=== PATIENT | female | born 1960 | race African-American/Black ===

== ENCOUNTER 2021-03-17 09:46 | Emergency (ER) | payer SELFPAY ==
[~2021-03-17] VITALS: Ht 175.3 cm; Wt 102.2 kg
[2021-03-17] MEDS ORDERED: diphenhydrAMINE 50 MG/ML VIAL IVP ONE ×2 (10:15→14:30)
[2021-03-17] MEDS ORDERED: EPINEPHrine 1 MG/ML VIAL IM ONE ×2 (10:15→10:30)
[2021-03-17] MEDS ORDERED: methylPREDNISolone SOD SUCC PF 125 MG/2 ML VIAL. IV ONE (10:15)
[2021-03-17] MEDS ORDERED: FAMOTIDINE 20 MG/2 ML VIAL IVP ONE ×2 (10:15→10:30)
[2021-03-17] MEDS ORDERED: diphenhydrAMINE 50 MG/ML VIAL ONE (10:17)
[2021-03-17] MEDS ORDERED: methylPREDNISolone SOD SUCC PF 125 MG/2 ML VIAL. ONE (10:17)
[2021-03-17] MEDS ORDERED: EPINEPHrine 1 MG/ML VIAL ONE (10:18)
[2021-03-17] MEDS ORDERED: FAMOTIDINE 20 MG/2 ML VIAL ONE (10:18)
--- NOTE | 2021-03-17 10:32 | PHYS DOC ---
General Adult EDM: Chief Complaint: ALLERGIC REACTION HPI: HPI: Patient is a 60 year old female who presents with allergic reaction. Patient states that she woke up this morning and her tongue was swollen she was having trouble speaking. Patient reports taking 3, hydrochlorothiazide, of her daughters last night due to her blood pressure being elevated. No other known allergies. Patient has a history of hypertension. Denies taking any medications. Review of Systems: Review of Systems: ROS At least 10 ROS systems have been reviewed and are negative except as documented in the HPI. General: Negative except as outlined in HPI above. Skin: Negative except as outlined in HPI above. HEENT: Negative except as outlined in HPI above. Neck: Negative except as outlined in HPI above. Respiratory: Negative except as outlined in HPI above.. Cardiovascular: Negative except as outlined in HPI above. Abdomen: Negative except as outlined in HPI above. : Negative except as outlined in HPI above. Back/MSK: Negative except as outlined in HPI above. Neuro: Negative except as outlined in HPI above. Psych: Negative except as outlined in HPI above. Heart Score: C/O Chest Pain: No Risk Factors: Risk Factors: DM, Current or recent (<one month) smoker, HTN, HLP, family history of CAD, obesity. Risk Scores: Score 0 - 3: 2.5% MACE over next 6 weeks - Discharge Home Score 4 - 6: 20.3% MACE over next 6 weeks - Admit for Clinical Observation Score 7 - 10: 72.7% MACE over next 6 weeks - Early Invasive Strategies Current Medications: Current Medications Medications (Trade) Dose Ordered Sig/Donato Start Time Stop Time Status Last Admin Dose Admin Diphenhydramine HCl (Benadryl) 50 mg STK-MED ONCE 03/17/21 10:17 03/17/21 10:18 DC Epinephrine HCl (Adrenalin) 0.3 mg 1X ONCE 03/17/21 10:30 03/17/21 10:31 Famotidine (Pepcid Vial) 20 mg STK-MED ONCE 03/17/21 10:18 03/17/21 10:18 DC Methylprednisolone Sodium Succinate (SOLU-Medrol 125MG VIAL) 125 mg STK-MED ONCE 03/17/21 10:17 03/17/21 10:18 DC Allergies: Allergies: Allergies Coded Allergies Type Severity Reaction Last Updated Verified hydrochlorothiazide Allergy Severe angioedema 03/17/21 Yes Physical Exam: PE: Constitutional: Well developed, well nourished, no acute distress, non-toxic appearance. [] HENT: Normocephalic, atraumatic, bilateral external ears normal, oropharynx moist, no oral exudates, nose normal. Tongue is enlarged and swollen Eyes: PERRLA, EOMI, conjunctiva normal, no discharge. [] Neck: Normal range of motion, no tenderness, supple, no stridor. [] Cardiovascular:Heart rate regular rhythm, no murmur [] Lungs & Thorax: Bilateral breath sounds clear to auscultation [] Abdomen: Bowel sounds normal, soft, no tenderness, no masses, no pulsatile masses. [] Skin: Warm, dry, no erythema, no rash. [] Back: No tenderness, no CVA tenderness. [] Extremities: No tenderness, no cyanosis, no clubbing, ROM intact, no edema. [] Neurologic: Alert and oriented X 3, normal motor function, normal sensory function, no focal deficits noted. [] Psychologic: Affect normal, judgement normal, mood normal. [] EKG: EKG: [] Radiology/Procedures: Radiology/Procedures: [] Course & Med Decision Making: Course & Med Decision Making Pertinent Labs and Imaging studies reviewed. (See chart for details) [] 60-year-old female presents with tongue angioedema. Patient states that she took 3 of her daughters hydrochlorothiazide last night. No other medications or exposures that she knows of. Patient has significant swelling to her tongue. Patient is maintaining her own secretions. Hemodynamically stable. Patient given 0.3 epi, 50 mg Benadryl, 40 mg Pepcid, 125 mg of Solu-Medrol. Patient given second dose of 0.3 IM epi. Patient states she feels like the swelling has decreased. Patient given third dose of 0.3, IM epi. Patient's tongue angioedema has improved since medication was administered. Patient given 25 mg of Benadryl. 1550-patient's tongue swelling has improved greatly. Patient states that she feels like her tongue is back to normal along with her voice and ability to speak. Patient is requesting to be discharged. Discussed return precautions in length with patient. Patient understands she is to return to the ER if she has swelling, shortness of breath, or any worsening symptoms or concerns. Advised patient she needs to make a follow-up appointment with a PCP to establish a r elationship. Patient is currently not taking any medications and should be on medication for hypertension. Patient was requesting me to send her home with a prescription for blood pressure medicine but stated that the last blood pressure medicine she was on also made her tongue swell. Patient does not remember what medication it was. Advised patient I would not be able to send her home on any medication but treated her pressure prior to discharge. patient given 20 mg labetalol. Educated patient on risk of taking medication she is not prescribed. Stressed the importance of not taking this medication again due to side effects. Patient states that she understands. Vera Disclaimer: Vera Disclaimer: This electronic medical record was generated, in whole or in part, using a voice recognition dictation system. Departure Departure Impression: Primary Impression: Angioedema Qualified Codes: T78.3XXA - Angioneurotic edema, initial encounter Additional Impression: Hypertension Qualified Codes: I10 - Essential (primary) hypertension Disposition: HOME / SELF CARE / HOMELESS Condition: STABLE Patient Instructions: Angioedema, [id number] Additional Instructions: You were seen in the emergency room for angioedema after taking hydrochlorothiazide. You had to be given Benadryl, epi, Pepcid, Solu-Medrol to help with swelling. Your symptoms improved after medication. Do not take this medication again due to risk of swelling. Return to the emergency room if you have any shortness of breath, trouble speaking, swelling. Please call and make a follow-up appointment so that you can be started on blood pressure medicine. You need to remind the physician that the previous medication you are on also gave you the same reaction of tongue swelling. [address] EMERGENCY DEPARTMENT GENERAL DISCHARGE INSTRUCTIONS Thank you for coming to [facility] Emergency Department (ED) today and trusting us with you care. We trust that you had a positive experience in our Emergency Department. If you wish to speak to the department management, you may call the Director at [phone]. YOUR FOLLOW UP INSTRUCTIONS ARE FOLLOWS: 1. Do you have a private Doctor? If you do not have a private doctor, please ask for a resource list of physicians or clinics that may be able to assist you with follow up care. 2. The Emergency Physicain has interpreted your x-rays. The X-Ray specialist will also review them. If there is a change in the findings, you will be notified in 48 hours when at all possible. 3. A lab test or culture has been done, your results will be reviewed and you will be notified if you need a change in treatment. ADDITIONAL INSTRUCTIONS AND INFORMATION: 1. Your care today has been supervised by a physician who is specially trained in emergency care. Many problems require more than one evaluation for a complete diagnosis and treatment. We recommend that you schedule your follow up appointment as recommended to ensure complete treatment of you illness or injury. If you are unable to obtain follow up care and continue to have a problem, or if your condition worsens, we recommend that you return to the ED. 2. We are not able to safely determine your condition over the phone nor are we able to give sound medical advice over the phone. For these safety reasons, if you call for medical advice we will ask you to come to the ED for further evaluation. 3. If you have any questions regarding these discharge instructions please call the ED at [phone]. SAFETY INFORMATION: In the interest of safety, wellness, and injury prevention; we encourage you to wear your sealbelt, if you smoke; quite smoking, and we encourage family to use a protective helmet for bicycling and other sporting events that present an increased risk for head injury. IF YOUR SYMPTOMS WORSEN OR NEW SYMPTOMS DEVELOP, OR YOU HAVE CONCERNS ABOUT YOUR CONDITION; OR IF YOUR CONDITION WORSENS WHILE YOU ARE WAITING FOR YOUR FOLLOW UP APPOINTMENT; EITHER CONTACT YOUR PRIMARY CARE DOCTOR, THE PHYSICIAN WHOSE NAME AND NUMBER YOU WERE GIVEN, OR RETURN TO THE ED IMMEDIATELY. LESLIE AN APRN Mar 17, 2021 10:32
[2021-03-17 11:18] LABS: BASO % 1 % (0-3); EOS # 0.1 x10^3/uL (0.0-0.7); EOS % 1 % (0-3); HEMATOCRIT 38.2 % (36.0-47.0); HEMOGLOBIN 12.9 g/dL (12.0-15.5); LYMPH # 1.9 x10^3/uL (1.0-4.8); LYMPH % 30 % (24-48); MEAN CORPUSCULAR HEMOGLOBIN 28 pg (25-35); MEAN CORPUSCULAR HGB CONC 34 g/dL (31-37); MEAN CORPUSCULAR VOLUME 84 fL (79-100); MONO # 0.3 x10^3/uL (0.0-1.1); MONO % 4 % (0-9); NEUT # 4.1 x10^3/uL (1.8-7.7); NEUT % 64 % (31-73); PLATELET COUNT 266 x10^3/uL (140-400); RED BLOOD COUNT 4.52 x10^6/uL (3.50-5.40); RED CELL DISTRIBUTION WIDTH 14.6 % (11.5-14.5); WHITE BLOOD COUNT 6.3 x10^3/uL (4.0-11.0)
[2021-03-17 11:28] LABS: CALCIUM 8.7 mg/dL (8.5-10.1); CREATININE 1.5 mg/dL (0.6-1.0); GFR 42.6; POTASSIUM 4.2 mmol/L (3.5-5.1)
[2021-03-17] MEDS ORDERED: LABETALOL 20 MG/4 ML DISP.SYRIN. IVP ONE (16:15)
[2021-03-17 16:27] VITALS: BP 146/87
--- NOTE | 2021-03-18 05:38 | EKG ---
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
--- NOTE | 2021-04-06 15:52 | EKG ---
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
== END 2021-03-17 16:38 | disposition home or self-care (01) ==
LOC: ER 09:46
DX: T78.3XXA Angioneurotic edema, initial encounter (principal); I10 Essential (primary) hypertension; Z88.8 Allergy status to other drugs, medicaments and biological substances
CPT/HCPCS: 36415; 80048; 85025; 96372; 96374; 96375; 96376; 99284; J0171; J1200; J2930; J3490; 93005